=== PATIENT | male | born 1955 | race Caucasian/White ===

== ENCOUNTER 2016-10-22 16:56 | Observation (INO) | payer OTHER ==
[~2016-10-22] VITALS: Ht 180.3 cm; Wt 98.6 kg
[~2016-10-22 16:56] MED LIST: ADVAIR 250/501 DISK IH; ANTI-DIARRHEA2 MG PO; ASPIR-LOW81 MG PO; ASPIRIN81 M1 PO; ATORVASTATIN CA80 MG PO; BETAPACE AF80 MG PO; CLINDACIN P1 EACH TP; COBAL-10001000 MCG/2 IJ; COUMADIN,JANTOV10 MG PO; COUMADIN10 MG PO; COUMADIN2.5 MG PO; COUMADIN5 MG PO; CYANOCOBAL1000 MCG/2 IM; HUMALOG100 UNIT/2 SC; IMODIUM MS REL1 EACH PO; JANUMET 50/11 TABLET PO; LANTUS 3 M100 UNITS/ PO; LANTUS 3 M100 UNITS1 SC; METROCREAM45 GM TP; MORGIDOX100 MG PO; NOVOLOG PE100 UNITS/ SC; NOVOLOG100 UNIT/3 SQ; PLAVIX75 MG PO; PRINIVIL20 MG PO; SUMYCIN 250250 MG PO; TYLENOL EXTRA500 MG PO; ULTRAVATE 0.05%15 GM TP; VITAMIN D2000 UNIT PO; VYTORIN 10-801 EACH PO; XYZAL5 MG PO
[2016-10-22 17:38] LABS: HEMATOCRIT 38.3 % (38.0-50.0); MCH 28.8 PG (29.0-34.0); MCHC 34.2 G/DL (30.0-36.0); MCV 84.2 FL (86-99); MEAN PLAT.VOLUME 9.2 uM^3 (9.0-12.4); PLATELET COUNT 182 K/uL (156-360); RBC DIS.WIDTH-CV 13.5 % (11.8-14.6); RBC DIS.WIDTH-SD 41.6 % (39-53); RED BLOOD COUNT 4.55 M/uL (4.00-5.50); WHITE BLOOD COUNT 6.9 K/uL (4.1-10.2)
[2016-10-22 17:55] LABS: CHLORIDE 106 mEq/L (99-109); POTASSIUM 4.7 mEq/L (3.7-5.4); SODIUM 141 mEq/L (136-147)
[2016-10-22 17:57] LABS: GLUCOSE 161 mg/dL (70-99)
[2016-10-22 17:59] LABS: ANION GAP 7 MEQ/L (2-14); TOTAL BILIRUBIN 0.6 mg/dL (0.0-1.0)
[2016-10-22 18:01] LABS: ALKALINE PHOSPHATASE 81 IU/L (3-129); GFR ESTIMATE (CALCULATED) > 59 mL/min/
[2016-10-22 18:02] LABS: UREA NITROGEN (BUN) 14 mg/dL (9-23)
[2016-10-22 18:04] LABS: CREATINE KINASE 142 IU/L (1-294); TOTAL CK 142 IU/L (1-294)
[2016-10-22 18:06] LABS: TROP-I INTERPRETATION NEGATIVE; TROPONIN-I < 0.01 ng/mL (0.0-0.30)
[2016-10-22 18:10] LABS: CK-MB 1.6 ng/mL (0.0-4.9)
[2016-10-22] MEDS ORDERED: CYANOCOBALAM1000 MCG PO (19:49)
[2016-10-22 20:06] LABS: POINT-OF-CARE METER ID UU14100415
[2016-10-22 21:34] LABS: INTER. NORMALIZED RATIO 2.6; PROTHROMBIN TIME 29.5 SEC (10.2-12.9)
[2016-10-22 21:37] LABS: PTT 40.4 SEC (25-37)
[2016-10-22 22:21] VITALS: BP 138/64
[2016-10-23 00:12] VITALS: BP 155/78
[2016-10-23 00:48] LABS: TROP-I INTERPRETATION NEGATIVE; TROPONIN-I < 0.01 ng/mL (0.0-0.30)
[2016-10-23 05:14] LABS: INTER. NORMALIZED RATIO 2.6
[2016-10-23 05:18] LABS: HEMATOCRIT 34.9 % (38.0-50.0); MCH 28.7 PG (29.0-34.0); MCHC 34.1 G/DL (30.0-36.0); MCV 84.1 FL (86-99); MEAN PLAT.VOLUME 9.4 uM^3 (9.0-12.4); PLATELET COUNT 162 K/uL (156-360); RBC DIS.WIDTH-CV 13.5 % (11.8-14.6); RBC DIS.WIDTH-SD 41.5 % (39-53); RED BLOOD COUNT 4.15 M/uL (4.00-5.50); WHITE BLOOD COUNT 5.6 K/uL (4.1-10.2)
[2016-10-23 05:29] LABS: TROP-I INTERPRETATION NEGATIVE; TROPONIN-I 0.01 ng/mL (0.0-0.30)
[2016-10-23 06:16] LABS: ANION GAP 6 MEQ/L (2-14); CHLORIDE 106 MEQ/L (99-109); GFR ESTIMATE (CALCULATED) > 59 mL/min/; GLUCOSE 141 mg/dL (70-99); SAMPLE HEMOLYSIS CHECK 0; SAMPLE ICTERIC CHECK 0; SAMPLE LIPEMIA CHECK 0; SODIUM 142 MEQ/L (136-147); UREA NITROGEN (BUN) 13 mg/dL (9-23)
[2016-10-23 07:20] VITALS: BP 124/62
[2016-10-23 08:32] LABS: POINT-OF-CARE METER ID UU14162513
[2016-10-23] MEDS ORDERED: NITROSTAT0.3 MG SL (12:06)
[2016-10-23 12:09] VITALS: BP 131/74
[2016-10-23 12:29] LABS: POINT-OF-CARE METER ID UU13113831
== END 2016-10-23 13:45 | disposition home or self-care (01) ==
LOC: EME 16:56 → EDOF 20:50 → 5WEST 20:50 → EDOF 20:50 → ENRESERV 20:53 → 5WEST 21:57
PROVIDERS: Emergency Medicine; Hospitalist
DX: R07.9 Chest pain, unspecified (principal); I48.91 Unspecified atrial fibrillation; I25.10 Atherosclerotic heart disease of native coronary artery without angina pectoris; Z95.5 Presence of coronary angioplasty implant and graft; I10 Essential (primary) hypertension; E11.65 Type 2 diabetes mellitus with hyperglycemia; E78.5 Hyperlipidemia, unspecified; Z95.0 Presence of cardiac pacemaker; Z82.49 Family history of ischemic heart disease and other diseases of the circulatory system; Z88.9 Allergy status to unspecified drugs, medicaments and biological substances; Z79.4 Long term (current) use of insulin; Z79.82 Long term (current) use of aspirin; Z95.828 Presence of other vascular implants and grafts; Z80.1 Family history of malignant neoplasm of trachea, bronchus and lung; Z91.09 Other allergy status, other than to drugs and biological substances
CPT/HCPCS: 71010; 80048; 80053; 82550; 82553; 82948; 84484; 85027; 85610; 85730; 93005; 99281; 99285; C1725; C1760; C1769; C1874; C1887; C1894; G0378; J1815

== ENCOUNTER 2016-10-26 10:39 | Day surgery (SDC) | payer OTHER ==
[~2016-10-26] VITALS: Ht 180.3 cm; Wt 95.9 kg
[~2016-10-26 10:39] MED LIST changes: +CYANOCOBALAM1000 MCG PO; +NITROSTAT0.3 MG SL
[2016-10-26] MEDS ORDERED: COUMADIN10 MG PO (11:11)
[2016-10-26 11:19] LABS: INTER. NORMALIZED RATIO 1.2; PROTHROMBIN TIME 13.7 SEC (10.2-12.9)
[2016-10-26 11:21] LABS: POINT-OF-CARE METER ID UU13113696
[2016-10-26 18:20] VITALS: BP 159/79
[2016-10-26 18:50] LABS: POINT-OF-CARE METER ID UU13113781
[2016-10-26 21:00] VITALS: BP 141/75
[2016-10-26 21:16] LABS: EOSINOPHIL (%) 0 % (0-5); HEMATOCRIT 38.4 % (38.0-50.0); IMMATURE GRANULOCYTE (%) 0.6 % (0.0-0.7); IMMATURE GRANULOCYTE COUNT 0.1 K/uL; INSTRUMENT ABS NEUTROPHIL CT 11.6 K/uL; LYMPHOCYTE COUNT 0.7 K/uL (1.0-2.8); MCH 29.5 PG (29.0-34.0); MCHC 35.4 G/DL (30.0-36.0); MCV 83.3 FL (86-99); MEAN PLAT.VOLUME 9.7 uM^3 (9.0-12.4); MONOCYTE (%) 0.9 % (3-12); MONOCYTE COUNT 0.1 K/uL (0-0.8); NEUTROPHIL (%) 92.7 % (45-76); NEUTROPHIL COUNT 11.6 K/uL (1.8-6.4); RBC DIS.WIDTH-CV 13.6 % (11.8-14.6); RBC DIS.WIDTH-SD 40.5 % (39-53); RED BLOOD COUNT 4.61 M/uL (4.00-5.50); WHITE BLOOD COUNT 12.6 K/uL (4.1-10.2)
[2016-10-26 21:26] LABS: PLATELET COUNT 211 K/uL (156-360)
[2016-10-27 00:29] VITALS: BP 154/76
[2016-10-27 00:54] LABS: POINT-OF-CARE METER ID UU13113698
[2016-10-27 04:52] VITALS: BP 168/81
[2016-10-27 05:16] LABS: EOSINOPHIL (%) 0 % (0-5); HEMATOCRIT 37.9 % (38.0-50.0); IMMATURE GRANULOCYTE COUNT 0.1 K/uL; INSTRUMENT ABS NEUTROPHIL CT 12.5 K/uL; LYMPHOCYTE COUNT 1.3 K/uL (1.0-2.8); MCH 29.6 PG (29.0-34.0); MCHC 35.4 G/DL (30.0-36.0); MCV 83.7 FL (86-99); MEAN PLAT.VOLUME 9.7 uM^3 (9.0-12.4); MONOCYTE (%) 3.9 % (3-12); MONOCYTE COUNT 0.6 K/uL (0-0.8); NEUTROPHIL COUNT 12.5 K/uL (1.8-6.4); PLATELET COUNT 210 K/uL (156-360); RBC DIS.WIDTH-CV 13.5 % (11.8-14.6); RBC DIS.WIDTH-SD 41.1 % (39-53); RED BLOOD COUNT 4.53 M/uL (4.00-5.50); WHITE BLOOD COUNT 14.5 K/uL (4.1-10.2)
[2016-10-27 05:52] LABS: ANION GAP 8 MEQ/L (2-14); CHLORIDE 104 MEQ/L (99-109); GFR ESTIMATE (CALCULATED) > 59 mL/min/; GLUCOSE 255 mg/dL (70-99); POTASSIUM 4.2 MEQ/L (3.7-5.4); SAMPLE HEMOLYSIS CHECK 0; SAMPLE ICTERIC CHECK 0; SAMPLE LIPEMIA CHECK 0; SODIUM 139 MEQ/L (136-147); UREA NITROGEN (BUN) 18 mg/dL (9-23)
[2016-10-27 08:07] LABS: POINT-OF-CARE METER ID UU13113781; POINT-OF-CARE USER ID ENVKC36
[2016-10-27 08:30] VITALS: BP 176/86
[2016-10-27 12:11] LABS: POINT-OF-CARE METER ID UU13113803; POINT-OF-CARE USER ID ENVKC36
[2016-10-27 12:30] VITALS: BP 153/70
[2016-10-27] MEDS ORDERED: LIPITOR80 MG PO (13:17)
[2016-10-27] MEDS ORDERED: AMLODIPINE BES2.5 MG PO (14:09)
== END 2016-10-27 16:03 | disposition home or self-care (01) ==
LOC: CATH 10:39 → 2SOUTH 15:57 → ENRESERV 15:57 → 2SOUTH 15:57 → ENRESERV 16:02 → 4EAST 17:57
PROVIDERS: Internal Medicine Cardiovascular Disease
DX: I25.110 Atherosclerotic heart disease of native coronary artery with unstable angina pectoris (principal); T82.858A Stenosis of other vascular prosthetic devices, implants and grafts, initial encounter; I10 Essential (primary) hypertension; I48.0 Paroxysmal atrial fibrillation; Z79.01 Long term (current) use of anticoagulants; Z95.0 Presence of cardiac pacemaker; G47.33 Obstructive sleep apnea (adult) (pediatric); E11.9 Type 2 diabetes mellitus without complications; C61 Malignant neoplasm of prostate; E78.2 Mixed hyperlipidemia; E03.9 Hypothyroidism, unspecified; Z79.82 Long term (current) use of aspirin; Z79.02 Long term (current) use of antithrombotics/antiplatelets; Z88.8 Allergy status to other drugs, medicaments and biological substances; Y83.1 Surgical operation with implant of artificial internal device as the cause of abnormal reaction of the patient, or of later complication, without mention of misadventure at the time of the procedure; Z79.4 Long term (current) use of insulin
CPT/HCPCS: 80048; 82948; 85025; 85347; 85610; 93005; C1725; C1760; C1769; C1874; C1887; C1894; G0378; J0690; J1200; J1644; J1815; J2250; J2765; J2930; J3010; J3246; J7030; J7050; J7512